=== PATIENT | male | born 1975 | race Caucasian/White ===

== ENCOUNTER 2017-12-09 14:59 | Emergency (ER) | payer OTHER ==
[~2017-12-09] VITALS: Ht 185.4 cm; Wt 147.9 kg
[~2017-12-09 14:59] MED LIST: CARDIZEM CD180 MG PO; CARDIZEM60 MG PO; CARVEDILOL25 MG PO; CORTIZONE-1028 GM TP; HYDROCHLOROTH12.5 M3 PO; LISINOPRIL40 MG PO; LO-DOSE ASPIRIN81 M1 PO; PRILOSEC OTC20 MG PO; PRINZIDE 20-121 EACH PO; XARELTO20 MG PO
[2017-12-09 15:37] LABS: BASOPHIL (%) 0.5 % (0-1); EOSINOPHIL (%) 4.2 % (0-5); EOSINOPHIL COUNT 0.4 K/uL (0-0.3); HEMATOCRIT 48.2 % (38.0-50.0); HEMOGLOBIN 16.6 G/DL (12.5-16.6); IMMATURE GRANULOCYTE (%) 0.5 % (0.0-0.7); LYMPHOCYTE (%) 26.4 % (15-42); LYMPHOCYTE COUNT 2.2 K/uL (1.0-2.8); MCH 30.2 PG (29.0-34.0); MCHC 34.4 G/DL (30.0-36.0); MCV 87.8 FL (86-99); MONOCYTE (%) 9.9 % (3-12); MONOCYTE COUNT 0.8 K/uL (0-0.8); NEUTROPHIL (%) 58.5 % (45-76); NEUTROPHIL COUNT 4.9 K/uL (1.8-6.4); PLATELET COUNT 206 K/uL (156-360); RBC DIS.WIDTH-CV 12.7 % (11.8-14.6); RBC DIS.WIDTH-SD 41.3 % (39-53); RED BLOOD COUNT 5.49 M/uL (4.00-5.50); WHITE BLOOD COUNT 8.3 K/uL (4.1-10.2)
[2017-12-09 15:45] LABS: CHLORIDE 109 mEq/L (99-109); POTASSIUM 4.3 mEq/L (3.7-5.4); SODIUM 143 mEq/L (136-147)
[2017-12-09 15:47] LABS: GLUCOSE 94 mg/dL (70-99)
[2017-12-09 15:51] LABS: CREATININE 0.9 mg/dL (0.6-1.3); GFR ESTIMATE (CALCULATED) > 59 mL/min/ (58.99-99999)
[2017-12-09 15:52] LABS: UREA NITROGEN (BUN) 19 mg/dL (9-23)
[2017-12-09] MEDS ORDERED: COZAAR25 MG PO (16:03)
[2017-12-09 16:15] VITALS: BP 141/78
== END 2017-12-09 16:17 | disposition home or self-care (01) ==
LOC: EME 14:59
PROVIDERS: Physician Assistant
DX: I10 Essential (primary) hypertension (principal); K21.9 Gastro-esophageal reflux disease without esophagitis; Z87.891 Personal history of nicotine dependence; Z79.82 Long term (current) use of aspirin; Z88.5 Allergy status to narcotic agent
CPT/HCPCS: 80048; 85025; 99281; 99284